=== PATIENT | female | born 1985 | race African-American/Black ===

== ENCOUNTER 2019-06-06 08:46 | Inpatient (IN) | payer MEDICAID ==
[~2019-06-06] VITALS: Ht 162.6 cm; Wt 57.6 kg
[2019-06-06 08:51] VITALS: BP 140/94
--- NOTE | 2019-06-06 09:06 | NUR ---
DR LARSON AT BEDSIDE
[2019-06-06] MEDS ORDERED: NACL 0.9% 1,000 ML IV ONE (09:15)
[2019-06-06] MEDS ORDERED: MORPHINE SULFATE 4 MG/ML SYR IVP ONE (09:15)
[2019-06-06] MEDS ORDERED: ONDANSETRON 4 MG/2 ML VIAL IVP ONE (09:15)
--- NOTE | 2019-06-06 09:23 | NUR ---
34 Y/F PRESENTS TO ED FOR RLQ ABD PAIN SINCE LAST NIGHT. PAIN IS 10/10. C/O BLOOD IN URINE, BURNING, R FLANK PAIN. C/O NAUSEA. DENIES FEVER OR DIARRHEA. HX- R KIDNEY TRANSPLANT MEDS- MYCOPHENOLIC ACID AND TAGROLIMUS.
--- NOTE | 2019-06-06 09:28 | NUR ---
XRAY AT BEDSIDE
[2019-06-06] MEDS ORDERED: cefTRIAXone 1,000 MG VIAL ONE (09:32)
--- NOTE | 2019-06-06 09:34 | NUR ---
LAB AND EKG AT BEDSIDE.
[2019-06-06 10:05] LABS: BASOPHILS # (AUTO) 0.1 K/uL (0.00-0.22); BASOPHILS % (AUTO) 0.5 % (0.0-2.0); EOSINOPHILS # (AUTO) 0.2 K/uL (0-0.4); EOSINOPHILS % (AUTO) 0.8 % (0.0-4.0); HEMATOCRIT 35.1 % (36-48); HEMOGLOBIN 11.2 g/dL (12.0-16.0); LYMPHOCYTES # (AUTO) 1.4 K/uL (2.5-16.5); MEAN CORPUSCULAR HEMOGLOBIN 24 pg (27-31); MEAN CORPUSCULAR HGB CONC 32 g/dL (33-37); MEAN CORPUSCULAR VOLUME 74.9 fL (80-94); NEUTROPHILS # (AUTO) 17.7 K/uL (1.8-7.7); NEUTROPHILS % (AUTO) 86.7 % (42.2-75.2); PLATELET COUNT (AUTO) 503 K/uL (140-450); RED BLOOD CELL COUNT(AUTO) 4.69 MIL/uL (4.20-5.40); RED CELL DISTRIBUTION WIDTH 17.2 % (11.6-13.7); WHITE BLOOD COUNT (AUTO) 20.4 K/uL (4.8-10.8)
[2019-06-06 10:27] LABS: APPEARANCE,URINE CLOUDY (CLEAR); BILIRUBIN,URINE NEGATIVE (NEGATIVE); BLOOD, URINE 3+ (NEGATIVE); COLOR,URINE ORANGE (YELLOW); LEUKOCYTE ESTERASE ,URINE 1+ (NEGATIVE); NITRITE, URINE POSITIVE (NEGATIVE); PH,URINE 5.5 (5.0-9.0); UGLUCOSE NEGATIVE (NEGATIVE)
[2019-06-06 10:28] LABS: PROTHROMBIN TIME 9.8 secs (10.8-13.4)
--- NOTE | 2019-06-06 10:31 | NUR ---
Dr. Clements is evaluating the patient at bedside.
[2019-06-06 10:40] LABS: ALBUMIN 3.7 g/dL (3.4-5.0); CARBON DIOXIDE 26.1 mmol/L (21-32); CREATININE 0.8 mg/dL (0.6-1.3); POTASSIUM 3.1 mmol/L (3.5-5.1); TOTAL BILIRUBIN 0.3 mg/dL (0.0-1.0)
--- NOTE | 2019-06-06 10:43 | NUR ---
PT AMBULATED TO BATHROOM WITH MOTHER IN LAW. STEADY GAIT.
--- NOTE | 2019-06-06 10:52 | NUR ---
Dr. Melendez is evaluating the patient at bedside.
[2019-06-06] MEDS ORDERED: ACETAMINOPHEN EXTRA STRENGTH 500 MG TAB PO ONE (11:00)
--- NOTE | 2019-06-06 11:00 | NUR ---
TYLENOL 1,000 MG VERBAL ORDER FROM DR LARSON FOR PTS ORAL TEMP 101
--- NOTE | 2019-06-06 11:07 | NUR ---
TYLENOL ADMINISTERED. RESIDENTS AT BEDSIDE
[2019-06-06] MEDS ORDERED: LORazepam 2 MG/ML VIAL IM/IVP PRN (11:10)
[2019-06-06] MEDS ORDERED: ZOLPIDEM 5 MG TAB PO PRN (11:10)
[2019-06-06] MEDS ORDERED: HYDROcodone/APAP 5/325 MG 1 TAB TAB PO PRN (11:10)
[2019-06-06] MEDS ORDERED: DOCUSATE SODIUM 100 MG GELCAP PO PRN (11:10)
[2019-06-06] MEDS ORDERED: TURM500C7 PO (11:28)
--- NOTE | 2019-06-06 11:31 | NUR ---
DISCHARGE PLANNING: THIS IS A 34 YEAR OLD FEMALE PATIENT FROM HOME, WHO CAME IN DUE TO RIGHT LOWER QUADRANT PAIN. PAST MEDICAL HISTORY INCLUDE UTI AND RENAL TRANSPLANT 9 YEARS AGO. INITIAL DIAGNOSIS OF SEPSIS 2/2 TO PYELONEPHRITIS. CURRENT LABS INCLUDE WBC 20.4, H/H 11.2/35.1, NA/K 141/3.1, BUN/CREA 16/0.8. NO CONSULTS YET AT THIS TIME. CXR NEGATIVE. DC PLAN BACK TO HOME ONCE STABLE.
[2019-06-06] MEDS ORDERED: BLUE500T PO (11:34)
[2019-06-06] MEDS ORDERED: CHOL100018 (11:34)
[2019-06-06] MEDS ORDERED: [UNRECOGNIZED DRUG - CODE] PO (11:34)
[2019-06-06] MEDS ORDERED: [UNRECOGNIZED DRUG - OTHER] PO (11:38)
[2019-06-06] MEDS ORDERED: LEVO0.083 PO ×2 (11:39→13:20)
[2019-06-06] MEDS ORDERED: PRED5TAB7 PO ×2 (11:40→13:20)
[2019-06-06] MEDS ORDERED: SYN.1 PO (11:42)
[2019-06-06] MEDS ORDERED: PROG1 PO ×2 (11:43→13:20)
[2019-06-06 11:53] LABS: BARBITURATE, URINE NEG. ng/ml (NEG <=200); BENZODIAZEPINE, URINE NEG. ng/mL (NEG <=200); CANNABINOID, URINE NEG. ng/mL (NEG <=50); COCAINE, URINE NEG. ng/mL (NEG <=300); OPIATE, URINE NEG. ng/mL (NEG <=2000); PHENCYCLIDINE SCREEN,URINE NEG. ng/mL (NEG <=25)
--- NOTE | 2019-06-06 11:55 | NUR ---
RECEIVED REPORT FROM ER NURSE PHOEBE. PT IS AWAKE AND ALERT. NO SIGNS OF DISTRESS. V/S TAKEN. T- 98.7, P 114, R 20, BP 126/83. MEDICAL HISTORY TAKEN. MRSA SWAB DONE. FAMILY AT BEDSIDE. WILL CONTINUE TO MONITOR
[2019-06-06 12:00] VITALS: BP 126/83
--- NOTE | 2019-06-06 12:03 | NUR ---
Patient will be admitted to care of DR. IVORY. Admited to TELE. Will go to room 106A. Belongings list completed. Report to EDWAR.
[2019-06-06 12:11] LABS: FREE T4 (FREE THYROXINE) 1.23 ng/dL (0.76-1.46); MAGNESIUM 1.5 mg/dL (1.8-2.4); PHOSPHORUS 3.3 mg/dL (2.5-4.9); THYROID STIMULATING HORMONE 0.08 uIU/mL (0.34-3.74)
--- NOTE | 2019-06-06 12:15 | NUR ---
PT COMPLAINED OF HEADACHE 4/10 AND ASKED FOR PAIN MEDICATION. WILL MEDICATE
[2019-06-06 12:29] LABS: CHOL/HDL RATIO 4.2 (1-4.5)
[2019-06-06] MEDS: NACL 0.9% 1,000 ML IV SCH (12:56)
[2019-06-06] MEDS: ACETAMINOPHEN 325 MG TAB PO PRN ×2 (12:57→20:22)
--- NOTE | 2019-06-06 13:01 | NUR ---
HANGED 1L NS AT 100ML/HR. TYLENOL GIVEN PO FOR HEADACHE. PT TOLERATED WELL. WILL CONTINUE TO MONITOR
[2019-06-06] MEDS ORDERED: POTASSIUM CHLORIDE 40 MEQ, LIDOCAINE MPF 1% 25 MG in NACL 0.9% 250 ML IV SCH (14:00)
[2019-06-06 16:00] VITALS: BP 124/78
[2019-06-06] MEDS ORDERED: MAG SULF 2000 MG/WATER PREMIX 50 ML IV SCH (18:00)
[2019-06-06] MEDS: MORPHINE SULFATE 2 MG/ML SYR IVP PRN (19:01)
--- NOTE | 2019-06-06 19:08 | NUR ---
hanged mg sulfate at 25 ml/hr. pt is complaining of pain 9/10 at the back. gave morphine ivp. will continue to monitor
--- NOTE | 2019-06-06 19:15 | NUR ---
REPORT GIVEN TO SENIOR OFFICER NURSE FOR CONTINUITY OF CARE. PT IS STABLE. CALL LIGHT WITHIN PT'S REACH.
--- NOTE | 2019-06-06 19:15 | NUR ---
RECIEVED PT AAOX4 , FEBRILE - WILL MEDICATE , IV SITE INTACT AND PATENT , ON SAFETY PRECAUTION PROTOCOL - CALL LIGHT WITHIN REACH . POC DISCUSSED AND VERBALIZE UNDERSTANDING . WILL CONT. TO MONITOR.
[2019-06-06 20:00] VITALS: BP 122/65
[2019-06-06] MEDS: ONDANSETRON 4 MG/2 ML VIAL IM/IVP PRN (20:22)
[2019-06-06] MEDS: TACROLIMUS 1 MG CAP PO SCH (20:30)
[2019-06-06] MEDS ORDERED: TACROLIMUS 3 MG PO SCH (21:00)
--- NOTE | 2019-06-06 22:00 | NUR ---
MADE ROUNDS , NO S/ S OF ACUTE DISTRESS NOTED AT THIS TIME.
[2019-06-07] VITALS: BP 122/17
--- NOTE | 2019-06-07 | NUR ---
MADE ROUNDS , NO S/ S OF ACUTE DISTRESS NOTED AT THIS TIME . C/O PAIN - WILL MEDICATE.
[2019-06-07] MEDS: ONDANSETRON 4 MG/2 ML VIAL IM/IVP PRN (00:51)
[2019-06-07] MEDS: MORPHINE SULFATE 2 MG/ML SYR IVP PRN (00:59)
[2019-06-07 04:00] VITALS: BP 100/62
--- NOTE | 2019-06-07 04:00 | NUR ---
MADE ROUNDS . NO S/S OF ACUTE DISTRESS NOTED AT THIS TIME - ON ESTIMATOR LUMBER. CALL LIGHT WITH IN REACH.
[2019-06-07] MEDS: NACL 0.9% 1,000 ML IV SCH ×2 (05:19→07:09)
[2019-06-07] MEDS ORDERED: LEVOTHYROXINE 0.088 MG TAB ONE (05:22)
[2019-06-07] MEDS: LEVOTHYROXINE 0.088 MG TAB PO SCH (05:24)
[2019-06-07] MEDS: ACETAMINOPHEN 325 MG TAB PO PRN ×2 (05:24→22:35)
--- NOTE | 2019-06-07 06:00 | NUR ---
MADE ROUNDS , C/O ANDRES - WILL MEDICATE . NO S/S OF ACUTE DISTRES NOTED . CALL LIGHT WITHIN REACH .
--- NOTE | 2019-06-07 07:15 | NUR ---
RECEIVED PATIENT FROM SLITTER SCORER NURSE RADHA RESPIRATIONS EVEN AND UNLABORED, ROOM AIR. SKIN ASSESSMENT COMPLETE. SKIN WARM, DRY AND INTACT. IV SITE PATENT AND INTACT. PATIENT IS AMBULATORY AND CONTINENT OF BOWEL AND BLADDER. NO C/O PAIN. NO S/SX ACUTE DISTRESS. PATIENT ORIENTED TO ROOM, STAFF AND CALL LIGHT. CALL LIGHT WITHIN REACH. WILL CONTINUE TO MONITOR.
[2019-06-07] MEDS ORDERED: PROMETHAZINE 25 MG TAB PO SCH (07:30)
--- NOTE | 2019-06-07 07:45 | NUR ---
RECEIVED REPORT FROM KAIA DAY SHIFT RN FOR CONTINUITY OF CARE. PT AAOX4, [place] SPEAKING. RESPIRATIONS EVEN AND UNLABORED ON ROOM AIR. SKIN ASSESSMENT COMPLETE. SKIN WARM, DRY AND INTACT. IV SITE PATENT AND INTACT. PATIENT IS AMBULATORY AND CONTINENT OF BOWEL AND BLADDER. NO C/O PAIN. NO S/SX ACUTE DISTRESS. PATIENT ORIENTED TO ROOM, STAFF AND CALL LIGHT. UPDATED BOARD. DISCUSSED POC WITH PT AND PT VERBALIZED UNDERSTANDING. CALL LIGHT WITHIN REACH. WILL MONITOR PT CLOSELY.
--- NOTE | 2019-06-07 07:45 | NUR ---
GAVE REPORT TO DAY SHIFT NURSE SENA FOR CONTINUITY OF CARE. PT IN STABLE CONDITION.
[2019-06-07 08:00] VITALS: BP 106/77
--- NOTE | 2019-06-07 08:38 | NUR ---
PATIENT HAS BEEN SCREENED AND CATEGORIZED MODERATE NUTRITION RISK. PATIENT WILL BE SEEN WITHIN 3-5 DAYS OF ADMISSION. 06/08/19 06/10/[address]
--- NOTE | 2019-06-07 09:31 | NUR ---
ADMINISTERED MORNING MEDS TO PT. PT TOLERATED WELL. ALL NEEDS MET. WILL CONTINUE TO ROUND FREQUENTLY ON PT.
[2019-06-07 09:39] LABS: BASOPHILS % (AUTO) 0.2 % (0.0-2.0); HEMATOCRIT 34.1 % (36-48); MONOCYTES # (AUTO) 0.6 K/uL (0.8-1.0); RED BLOOD CELL COUNT(AUTO) 4.36 MIL/uL (4.20-5.40)
[2019-06-07] MEDS: predniSONE 5 MG TAB PO SCH (09:44)
[2019-06-07] MEDS: LACTOBACILLUS RHAMNOSUS GG 1 EACH CAP PO SCH (09:44)
[2019-06-07] MEDS: PANTOPRAZOLE 40 MG TABEC PO SCH (09:44)
[2019-06-07] MEDS: TACROLIMUS 1 MG CAP PO SCH ×2 (09:45→20:18)
[2019-06-07 09:47] LABS: EOSINOPHILS % (AUTO) 0.1 % (0.0-4.0); HEMOGLOBIN 10.4 g/dL (12.0-16.0); LYMPHOCYTES # (AUTO) 0.9 K/uL (2.5-16.5); LYMPHOCYTES % (AUTO) 5.6 % (20.5-51.1); MEAN CORPUSCULAR HEMOGLOBIN 24 pg (27-31); MEAN CORPUSCULAR HGB CONC 31 g/dL (33-37); MEAN CORPUSCULAR VOLUME 78.2 fL (80-94); MONOCYTES % (AUTO) 3.7 % (1.7-9.3); NEUTROPHILS # (AUTO) 14.3 K/uL (1.8-7.7); NEUTROPHILS % (AUTO) 90.4 % (42.2-75.2); PLATELET COUNT (AUTO) 412 K/uL (140-450); RED CELL DISTRIBUTION WIDTH 17.6 % (11.6-13.7); WHITE BLOOD COUNT (AUTO) 15.9 K/uL (4.8-10.8)
[2019-06-07 10:29] LABS: ANION GAP 14.4 (8-16); CARBON DIOXIDE 22.8 mmol/L (21-32); CREATININE 0.8 mg/dL (0.6-1.3); POTASSIUM 3.2 mmol/L (3.5-5.1)
[2019-06-07 10:32] LABS: MAGNESIUM 1.9 mg/dL (1.8-2.4); PHOSPHORUS 2.1 mg/dL (2.5-4.9)
--- NOTE | 2019-06-07 11:41 | NUR ---
PT RESTING IN BED WITH FAMILY AT BEDSIDE. PT STATED THAT SHE HAS MEDICATION FOR HER KIDNEYS AT BEDSIDE. UPON INSPECTION, MEDICATION IS NOT IN A RX BOTTLE. BOTTLE UNLABELED. PER PT SHE TAKES MEDS IN THE MORNING AND AT NIGHT. I ASKED PT FOR PHARMACY WHERE SHE GETS HER MEDS FILLED BUT SHE SAYS SHE GOT THIS MED IN [place]. I EDUCATED PT TO NOT TAKE ANY MEDS WHILE IN HOSPITAL SINCE OTHER MEDS CAN INTERACT WITH MEDS SHE CURRENTLY TAKING. PT VERBALIZED UNDERSTANDING. SHE DOES NOT WANT TO HAND MEDS OVER. PT STATED SHE WANTS TO KEEP MEDS. FAMILY AT BEDSIDE SAID THEY WILL TAKE MEDS HOME. AWARE OF SITUATION. HE EXPLAINED THE SAME THING TO PT.
[2019-06-07 12:00] VITALS: BP 113/73
[2019-06-07] MEDS ORDERED: POTASSIUM PHOSPHATE 15 MM in NACL 0.9% 250 ML IV SCH (12:00)
--- NOTE | 2019-06-07 13:21 | NUR ---
PT RESTING IN BED. ALL NEEDS MET.
--- NOTE | 2019-06-07 15:41 | NUR ---
PT ASLEEP. ALL NEEDS MET. WILL CONTINUE TO ROUND ON PT.
[2019-06-07 16:00] VITALS: BP 114/73
--- NOTE | 2019-06-07 17:28 | NUR ---
PT RESTINGI N BE DWITH FAMILY AT BEDSIDE. ALL NEEDS MET. WILL CONTINUE TO ROUND ON PT.
--- NOTE | 2019-06-07 19:29 | NUR ---
REPORT RECEIVED FROM AM NURSE AT BEDSIDE. PT IN STABLE CONDITION. AAOX4. INTRODUCED SELF TO PT. BOARD UPDATED. NO COMPLAINTS OF PAIN. NO SOB. AFEBRILE. PT IS AMBULATORY. IV SITE L AC 20G RUNNING NS@40ML/HR PATENT AND INTACT. SKIN WARM, DRY, AND INTACT WITH NO OPEN WOUNDS. BED LOCKED IN LOW POSITION. CALL [place] WITHIN REACH. SAFETY PRECAUTION IN PLACE. ALL NEEDS MET AT THIS TIME.
--- NOTE | 2019-06-07 19:35 | NUR ---
ENDORSED PT TO CAVALRY SCOUT FOR CONTINUITY OF CARE. PT IN STABLE CONDITION AT THIS TIME.
[2019-06-07 20:00] VITALS: BP 122/78
--- NOTE | 2019-06-07 20:18 | NUR ---
PROGRAF GIVEN PO. PT TOLERATED WELL.
--- NOTE | 2019-06-07 22:35 | NUR ---
TYL GIVEN FOR HEADACHE. PT TOLERATED WELL.
[2019-06-08] VITALS: BP 121/55
--- NOTE | 2019-06-08 00:15 | NUR ---
PT SLEEPING COMFORTABLY BUT AROUSABLE. NO S/S OF DISTRESS NOTED. PT STILL COMPLAINTS OF A HEADACHE. WAS GIVEN TYL 2 HOURS AGO. WILL REASSESS IN A FEW HOURS.
--- NOTE | 2019-06-08 02:30 | NUR ---
PATIENT COMPLAINED OF HEADACHE. ATTEMPTED TO GIVE NORCO BUT PATIENT REFUSED. MD NOTIFIED. SAID HE WILL ORDER SOMETHING ELSE. MEDICATION WAS OPENED AND WILL BE WASTED IN PHARMACEUTICAL WASTE.
[2019-06-08] MEDS ORDERED: APAP/BUTAL/CAFF 325/50/40 MG 1 TAB PO PRN (02:40)
[2019-06-08 04:00] VITALS: BP 124/63
--- NOTE | 2019-06-08 04:02 | NUR ---
FIORICET GIVEN FOR HEADACHE. PT TOLERATED WELL.
[2019-06-08] MEDS: NACL 0.9% 1,000 ML IV SCH (04:12)
[2019-06-08] MEDS: LEVOTHYROXINE 0.088 MG TAB PO SCH (05:42)
--- NOTE | 2019-06-08 05:42 | NUR ---
SYNTHROID GIVEN PO. PT TOLERATED WELL.
--- NOTE | 2019-06-08 07:19 | NUR ---
REPORT GIVEN TO AM NURSE AT BEDSIDE. PT IN STABLE CONDITION.
--- NOTE | 2019-06-08 07:26 | NUR ---
RECEIVED REPORT FROM NIGHT NURSE. PT IN STABLE CONDITION, AWAKE IN BED, AAOX4, RESPIRATIONS EVEN AND UNLABORED ON ROOM AIR. NO DISTRESS NOTED, DENIES PAIN. IV IN PLACE PATENT AND ASYMPTOMATIC IN L AC 20G INFUSING PER ORDER. SKIN INTACT, PT AMBULATORY, CONTINENT. RENAL DIET. SAFETY MEASURES IN PLACE, CALL LIGHT WITHIN REACH, WILL CONTINUE TO MONITOR.
[2019-06-08 07:44] LABS: BASOPHILS # (AUTO) 0.1 K/uL (0.00-0.22); BASOPHILS % (AUTO) 0.5 % (0.0-2.0); EOSINOPHILS # (AUTO) 0.1 K/uL (0-0.4); EOSINOPHILS % (AUTO) 0.8 % (0.0-4.0); HEMATOCRIT 31.2 % (36-48); HEMOGLOBIN 9.7 g/dL (12.0-16.0); LYMPHOCYTES # (AUTO) 1.6 K/uL (2.5-16.5); LYMPHOCYTES % (AUTO) 15.6 % (20.5-51.1); MEAN CORPUSCULAR HEMOGLOBIN 24 pg (27-31); MEAN CORPUSCULAR HGB CONC 31 g/dL (33-37); MEAN CORPUSCULAR VOLUME 78.1 fL (80-94); MONOCYTES # (AUTO) 1.2 K/uL (0.8-1.0); MONOCYTES % (AUTO) 11.8 % (1.7-9.3); NEUTROPHILS # (AUTO) 7.2 K/uL (1.8-7.7); NEUTROPHILS % (AUTO) 71.3 % (42.2-75.2); PLATELET COUNT (AUTO) 378 K/uL (140-450); RED BLOOD CELL COUNT(AUTO) 3.99 MIL/uL (4.20-5.40); WHITE BLOOD COUNT (AUTO) 10.1 K/uL (4.8-10.8)
[2019-06-08 07:49] LABS: ANION GAP 12.1 (8-16); CARBON DIOXIDE 23.4 mmol/L (21-32); CREATININE 0.8 mg/dL (0.6-1.3); POTASSIUM 3.5 mmol/L (3.5-5.1)
[2019-06-08 08:03] LABS: MAGNESIUM 1.7 mg/dL (1.8-2.4); PHOSPHORUS 2.7 mg/dL (2.5-4.9)
[2019-06-08] MEDS: TACROLIMUS 1 MG CAP PO SCH (08:15)
[2019-06-08] MEDS: LACTOBACILLUS RHAMNOSUS GG 1 EACH CAP PO SCH (08:16)
[2019-06-08] MEDS: predniSONE 5 MG TAB PO SCH (08:16)
[2019-06-08] MEDS: PANTOPRAZOLE 40 MG TABEC PO SCH (08:16)
--- NOTE | 2019-06-08 08:24 | NUR ---
MEDICATIONS ADMINISTERED PER ORDER. PT TOLERATED WELL, NODISTRESS NOTED. WILL CONTINUE TO MONITOR.
[2019-06-08] MEDS ORDERED: LEVO750T2 PO (09:02)
[2019-06-08] MEDS ORDERED: TACROLIMUS 0.5 MG CAP PO SCH (09:57)
[2019-06-08 10:02] VITALS: BP 120/82
[2019-06-08] MEDS ORDERED: MAGNESIUM OXIDE 400 MG TAB PO SCH (11:00)
--- NOTE | 2019-06-08 11:09 | NUR ---
MEDICATIONS ADMINISTERED PER ORDER. PER ORDER OF DR LESLI COHEN GIVEN EARLY PRIOR TO DISCHARGE. WILL CONTINUE TO MONITOR.
--- NOTE | 2019-06-08 11:50 | NUR ---
PT DISCHARGED AT THIS TIME. DISCHARGE FOLLOWUP AND MEDICATION TEACHING GIVEN, PT VERBALIZED UNDERSTANDING. DISCHARGE PAPERWORK SIGNED, BELONGINGS VERIFIED AND RETURNED TO PT. FLU AND PNA VACCINES REFUSED. IV SITE REMOVED WITH MINIMAL BLOOD LOSS AND LUMEN INTACT. SKIN INTACT. RESPIRATIONS EVEN AND UNLABORED ON ROOM AIR. PT ESCORTED OFF THE UNIT ON FOOT ACCOMPANIED BY SIGNIFICANT OTHER, GOING HOME.
== END 2019-06-08 11:50 | disposition home or self-care (01) | DRG 720 ==
LOC: MED 08:46 → MTU 11:09
PROVIDERS: ADMIT General Practice; ATTEND General Practice
DX: A41.9 Sepsis, unspecified organism (principal); D69.6 Thrombocytopenia, unspecified; E83.42 Hypomagnesemia; Z94.0 Kidney transplant status; E83.39 Other disorders of phosphorus metabolism; K21.9 Gastro-esophageal reflux disease without esophagitis; E03.9 Hypothyroidism, unspecified; N12 Tubulo-interstitial nephritis, not specified as acute or chronic; E78.5 Hyperlipidemia, unspecified; D64.9 Anemia, unspecified; E87.6 Hypokalemia; Z87.440 Personal history of urinary (tract) infections; Z79.899 Other long term (current) drug therapy
CPT/HCPCS: 36415; 71045; 80048; 80053; 80305; 81001; 82150; 83036; 83605; 83690; 83735; 83880; 84100; 84439; 84443; 84484; 85025; 85610; 85730; 87040; 87081; 87086; 87186; 93005; 96361; 96365; 96375; 99285; J0696; J2001; J2270; J2405; J3475; J3480; J7030; J7060; J7507; J7512; Q0092

== ENCOUNTER 2019-06-18 05:05 | Emergency (ER) | payer MEDICAID ==
[~2019-06-18] VITALS: Ht 160 cm; Wt 58.1 kg
[~2019-06-18 05:05] MED LIST: BLUE500T PO; LEVO0.083 PO; LEVO750T2 PO; PRED5TAB7 PO; PROG1 PO; TURM500C7 PO; [UNRECOGNIZED DRUG - CODE] PO; [UNRECOGNIZED DRUG - OTHER] PO
[2019-06-18 05:10] VITALS: BP 141/92
--- NOTE | 2019-06-18 05:10 | NUR ---
TO BED # 03 AMBULATORY
--- NOTE | 2019-06-18 05:33 | NUR ---
PATIENT AMBULATING TO RESTROOM FOR URINE SAMPLE. STEADY GAIT NOTED.
--- NOTE | 2019-06-18 05:42 | NUR ---
34 Y/O F, PRESENTS TO ER WITH COMPLAINTS OF PAINFUL URINATION FOR 1 DAY. PATIENT WAS SEEN HERE AT ED FOR SAME SYMPTOMS AND WAS PRESCRIBED LEVOFLOXACIN. PATIENT HAS BEEN COMPLIANT WITH MEDICATIONS BUT PAINFUL/BURNING URINATION STARTED YESTERDAY. PAST MEDICAL HX INCLUDES KIDNEY TRANSPLANT OVER 10 YEARS AGO. DENIES F/V/D/N/C. URINE IS YELLOW WITH SEDIMENT, NO BLOOD NOTED. NOT ON CONTROL, LAST MENSTRUAL CYCLE 05/27/19. PT ANOx4, SKIN WARM AND DRY, ON ROOM AIR. SIDERAILS UP x1. AT BEDSIDE TO HELP TRANSLATE, [place] SPEAKING ONLY. WILL CONTINUE TO MONITOR.
== END 2019-06-18 05:54 | disposition home or self-care (01) ==
LOC: MED 05:05
DX: N39.0 Urinary tract infection, site not specified (principal); Z79.899 Other long term (current) drug therapy
CPT/HCPCS: 99283

== ENCOUNTER 2019-10-11 21:27 | Emergency (ER) | payer MEDICAID ==
[~2019-10-11] VITALS: Ht 160 cm; Wt 59.9 kg
[~2019-10-11 21:27] MED LIST changes: -PROG1 PO; +TACR1CAP17 PO
[2019-10-11 21:43] VITALS: BP 136/89
--- NOTE | 2019-10-11 21:46 | NUR ---
PT AMBULATED TO [facility] WITH STEADY GAIT.
--- NOTE | 2019-10-11 22:52 | NUR ---
34 Y/O FEMALE C/O BURNING UPON URINATION WITH DISCOMFORT X 1 DAY; PT DENIES ANY URINE COLOR CHANGES; PAIN 12/21; PMH: KIDNEY TRANSPLANT IN 2010 [facility] DENIES N/V/D; SKIN IS PINK/WARM/DRY; AAOX4 WITH EVEN AND STEADY GAIT; HR EVEN AND REGULAR; PT DENIES ANY FEVER, CP, SOB, OR COUGH AT THIS TIME; VSS; PATIENT POSITIONED FOR COMFORT IN CHAIR C
--- NOTE | 2019-10-11 23:01 | NUR ---
PHONED LAB AND AXEL STATED HE JUST PICKED UP URINE FROM DIRTY UTILITY ROOM
[2019-10-11 23:15] LABS: APPEARANCE,URINE CLOUDY (CLEAR); BILIRUBIN,URINE NEGATIVE (NEGATIVE); BLOOD, URINE NEGATIVE (NEGATIVE); COLOR,URINE YELLOW (YELLOW); LEUKOCYTE ESTERASE ,URINE NEGATIVE (NEGATIVE); NITRITE, URINE POSITIVE (NEGATIVE); UGLUCOSE NEGATIVE (NEGATIVE)
[2019-10-11 23:36] LABS: RBC,URINE 0-5 /HPF (0-5); WBC,URINE 16-25 (MOD) /HPF (0-5)
[2019-10-12] MEDS ORDERED: cefTRIAXone 1,000 MG in LIDOCAINE MPF 1% 2.1 ML IM ONE (00:05)
[2019-10-12] MEDS ORDERED: cefTRIAXone 1,000 MG VIAL ONE (00:13)
[2019-10-12] MEDS ORDERED: LIDOCAINE MPF 1% 5 ML ONE (00:13)
--- NOTE | 2019-10-12 00:22 | NUR ---
LAB AT CHAIR SIDE DRAWING BLOOD
[2019-10-12 00:43] LABS: ANION GAP 14.2 (8-16); CARBON DIOXIDE 25.5 mmol/L (21-32); CREATININE 0.9 mg/dL (0.6-1.3); POTASSIUM 3.7 mmol/L (3.5-5.1)
--- NOTE | 2019-10-12 00:43 | NUR ---
PT SITTING IN CHAIR C IN POSITION OF COMFORT
--- NOTE | 2019-10-12 01:19 | NUR ---
Patient discharged with v/s stable. Written and verbal after care instructions given and explained. Patient verbalized understanding. Ambulatory with steady gait. All questions addressed prior to discharge. Advised to follow up with PMD. Prescription of keflex was given. Pt walk in steady gait and no other concerns noted. Pt d/c.
[2019-10-12 01:30] VITALS: BP 123/80
== END 2019-10-12 01:19 | disposition home or self-care (01) ==
LOC: MED 21:27
DX: N39.0 Urinary tract infection, site not specified (principal); N28.9 Disorder of kidney and ureter, unspecified; Z79.899 Other long term (current) drug therapy
CPT/HCPCS: 36415; 80048; 81001; 81025; 87086; 96372; 99283; J0696; J2001; 87186

== ENCOUNTER 2020-09-19 07:16 | Emergency (ER) | payer MEDICAID ==
[~2020-09-19] VITALS: Ht 160 cm; Wt 59.0 kg
[2020-09-19 07:22] VITALS: BP 124/83
--- NOTE | 2020-09-19 07:27 | NUR ---
PT AMBULATED TO BED 08
--- NOTE | 2020-09-19 07:31 | NUR ---
35 Y/O FEMALE C/O DYSURIA X4 DAYS. PT STATES 9/10 PAIN TO LOWER BACK, WITH TENDERNESS. DENIES FEVER/CHILLS, NAUSEA/VOMITING. PMH:KIDNEY TRANSPLANT 2010 NKDA
--- NOTE | 2020-09-19 07:35 | NUR ---
DR AJ AT BEDSIDE EXAMINING PT
[2020-09-19] MEDS ORDERED: cefTRIAXone 1,000 MG VIAL ONE (07:51)
[2020-09-19 07:53] LABS: BASOPHILS # (AUTO) 0.1 K/uL (0.00-0.22); BASOPHILS % (AUTO) 0.9 % (0.0-2.0); EOSINOPHILS # (AUTO) 0.2 K/uL (0-0.4); EOSINOPHILS % (AUTO) 2.7 % (0.0-4.0); HEMATOCRIT 41.2 % (36-48); HEMOGLOBIN 13.8 g/dL (12.0-16.0); LYMPHOCYTES % (AUTO) 27.2 % (20.5-51.1); MEAN CORPUSCULAR HEMOGLOBIN 31 pg (27-31); MEAN CORPUSCULAR HGB CONC 34 g/dL (33-37); MEAN CORPUSCULAR VOLUME 92.5 fL (80-94); MONOCYTES # (AUTO) 0.6 K/uL (0.8-1.0); MONOCYTES % (AUTO) 8.1 % (1.7-9.3); NEUTROPHILS # (AUTO) 4.5 K/uL (1.8-7.7); NEUTROPHILS % (AUTO) 61.1 % (42.2-75.2); PLATELET COUNT (AUTO) 371 K/uL (140-450); RED BLOOD CELL COUNT(AUTO) 4.45 MIL/uL (4.20-5.40); RED CELL DISTRIBUTION WIDTH 13.2 % (11.6-13.7); WHITE BLOOD COUNT (AUTO) 7.3 K/uL (4.8-10.8)
[2020-09-19 08:06] LABS: ALBUMIN 3.3 g/dL (3.4-5.0); ANION GAP 16.1 (8-16); CARBON DIOXIDE 22.5 mmol/L (21-32); CREATININE 0.8 mg/dL (0.6-1.3); POTASSIUM 3.6 mmol/L (3.5-5.1); TOTAL BILIRUBIN 0.3 mg/dL (0.0-1.0)
[2020-09-19 08:08] LABS: BILIRUBIN,URINE NEGATIVE (NEGATIVE); BLOOD, URINE 3+ (NEGATIVE); COLOR,URINE YELLOW (YELLOW); LEUKOCYTE ESTERASE ,URINE 2+ (NEGATIVE); NITRITE, URINE NEGATIVE (NEGATIVE); UGLUCOSE NEGATIVE (NEGATIVE)
[2020-09-19] MEDS ORDERED: CEPH-588 PO (08:25)
[2020-09-19 08:37] LABS: APPEARANCE,URINE SLIGHTLY HAZY (CLEAR)
[2020-09-19] MEDS ORDERED: NITR100C7 PO (09:04)
[2020-09-19 09:09] VITALS: BP 124/83
--- NOTE | 2020-09-19 09:09 | NUR ---
Patient discharged with v/s stable. Written and verbal after care instructions given and explained. Patient alert, oriented and verbalized understanding of instructions. Ambulatory with steady gait. All questions addressed prior to discharge. ID band removed. Patient advised to follow up with PMD. Rx of KEFLEX AND MACROBID given. Patient educated on indication of medication including possible reaction and side effects. Opportunity to ask questions provided and answered.
== END 2020-09-19 09:09 | disposition home or self-care (01) ==
LOC: MED 07:16
DX: N39.0 Urinary tract infection, site not specified (principal); Z94.0 Kidney transplant status; Z79.899 Other long term (current) drug therapy
CPT/HCPCS: 36415; 80053; 81001; 81025; 85025; 87086; 87186; 96365; 99284; J0696; J7060

== ENCOUNTER 2021-04-19 07:08 | Emergency (ER) | payer MEDICAID ==
[~2021-04-19] VITALS: Ht 172.7 cm; Wt 61.7 kg
[~2021-04-19 07:08] MED LIST changes: +CIPR500T4 PO; +NITR100C7 PO; +PYR100 PO
[2021-04-19 07:22] VITALS: BP 129/91
--- NOTE | 2021-04-19 07:29 | NUR ---
Pt in tent
[2021-04-19] MEDS: NACL 0.9% 1,000 ML IV ONE (08:23)
[2021-04-19] MEDS: ACETAMINOPHEN 325 MG TAB PO ONE (08:24)
[2021-04-19] MEDS: METOCLOPRAMIDE 10 MG/2 ML INJ VIAL IVP ONE (08:24)
--- NOTE | 2021-04-19 09:00 | NUR ---
PT CO DRY COUGH AND HEADACHE X1 DAY WITH PHOTOPHOBIA. IV INSERTED TO LEFT AC #[id number]. MEDICATED PER ORDER. NO ACUTE DISTRSS NOTED. SAFETY MAINTAINED.
[2021-04-19] MEDS: MORPHINE SULFATE 4 MG/ML SYR IVP ONE (10:25)
[2021-04-19 13:26] VITALS: BP 109/67
--- NOTE | 2021-04-19 13:27 | NUR ---
Patient discharged with v/s stable. Written and verbal after care instructions given and explained. Patient verbalized understanding. Ambulatory with steady gait. All questions addressed prior to discharge. Advised to follow up with PMD.
--- NOTE | 2021-04-24 12:51 | NUR ---
LATE ENTRY- IV NORMAL SALINE DISCONTINUED AT 1327.
== END 2021-04-19 13:27 | disposition home or self-care (01) ==
LOC: MED 07:08
DX: G43.909 Migraine, unspecified, not intractable, without status migrainosus (principal); Z20.822 Contact with and (suspected) exposure to COVID-19; Z98.890 Other specified postprocedural states; Z79.899 Other long term (current) drug therapy
CPT/HCPCS: 70450; 87426; 96361; 96374; 96375; 99284; J2270; J2765; J7030

== ENCOUNTER 2022-05-01 17:05 | Emergency (ER) | payer MEDICAID ==
[~2022-05-01] VITALS: Ht 157.5 cm; Wt 65.8 kg
[2022-05-01 17:18] VITALS: BP 160/104
--- NOTE | 2022-05-01 17:26 | NUR ---
PT WALKED TO BED 1
[2022-05-01] MEDS ORDERED: diphenhydrAMINE 50 MG/ML VIAL IVP ONE (18:15)
[2022-05-01] MEDS ORDERED: KETOROLAC 15 MG/ML VIAL IVP ONE (18:15)
[2022-05-01] MEDS ORDERED: NACL 0.9% 1,000 ML IV ONE (18:15)
[2022-05-01] MEDS ORDERED: PROCHLORPERAZINE 10 MG/2 ML VIAL IVP ONE (18:15)
--- NOTE | 2022-05-01 19:28 | NUR ---
REPORT GIVEN TO NURSE RUBIN FOR CONTINUITY OF CARE.
[2022-05-01] MEDS ORDERED: METOCLOPRAMIDE 10 MG/2 ML INJ VIAL ONE (19:33)
[2022-05-01] MEDS ORDERED: METOCLOPRAMIDE 10 MG/2 ML INJ VIAL IVP ONE (19:40)
[2022-05-01] MEDS ORDERED: ACETAMINOPHEN EXTRA STRENGTH 500 MG TAB PO ONE (19:50)
[2022-05-01] MEDS ORDERED: MORPHINE SULFATE 4 MG/ML SYR IVP ONE (20:15)
[2022-05-01] MEDS ORDERED: ACET-9234 PO (21:24)
[2022-05-01 21:39] VITALS: BP 135/82
--- NOTE | 2022-05-01 21:39 | NUR ---
Patient discharged with v/s stable. Written and verbal after care instructions given and explained. Patient alert, oriented and verbalized understanding of instructions. Ambulatory with steady gait. All questions addressed prior to discharge. ID band removed. Patient advised to follow up with PMD. Rx of FIORICET given. Patient educated on indication of medication including possible reaction and side effects. Opportunity to ask questions provided and answered.
== END 2022-05-01 21:45 | disposition home or self-care (01) ==
LOC: MED 17:05
DX: G43.909 Migraine, unspecified, not intractable, without status migrainosus (principal); N18.9 Chronic kidney disease, unspecified
CPT/HCPCS: 81025; 96361; 96374; 96375; 99284; J0780; J1200; J1885; J2270; J2765